=== PATIENT | male | born 1985 | race Caucasian/White ===

== ENCOUNTER 2023-01-04 14:24 | Emergency (ER) | payer MEDICAID ==
[~2023-01-04] VITALS: Ht 167.6 cm; Wt 52.2 kg
[2023-01-04 14:52] VITALS: BP 126/89; PULSE 106; RESP 22; TEMP 98; O2SAT 99
--- NOTE | 2023-01-04 15:10 | NUR ---
PT AMBULATED TO BED 8
--- NOTE | 2023-01-04 15:18 | NUR ---
MD CUMMINGS AT BEDSIDE FOR EVALUATION
[2023-01-04 15:25] VITALS: O2SAT 99
[2023-01-04] MEDS ORDERED: LACTATED RINGERS 1,000 ML IV STA (15:45)
--- NOTE | 2023-01-04 16:11 | NUR ---
C/O DIZZINESS DUE TO ELEVATED BLOOD SUGAR, OFF INSULIN FOR A MONTH NOW.
[2023-01-04 16:17] LABS: BASOPHILS % (AUTO) 0.4 % (0.0-2.0); EOSINOPHILS % (AUTO) 0.6 % (0.0-4.0); HEMATOCRIT 38.6 % (36-52); HEMOGLOBIN 13.5 g/dL (12.0-18.0); LYMPHOCYTES # (AUTO) 1.3 K/uL (2.0-11.5); LYMPHOCYTES % (AUTO) 21.6 % (20.5-51.1); MEAN CORPUSCULAR HEMOGLOBIN 33 pg (27-31); MEAN CORPUSCULAR HGB CONC 35 g/dL (33-37); MEAN CORPUSCULAR VOLUME 94.3 fL (80-94); MONOCYTES # (AUTO) 0.4 K/uL (0.8-1.0); NEUTROPHILS # (AUTO) 4.3 K/uL (1.8-7.7); NEUTROPHILS % (AUTO) 70.4 % (42.2-75.2); PLATELET COUNT (AUTO) 183 K/uL (140-450); RED BLOOD CELL COUNT(AUTO) 4.09 MIL/uL (4.20-6.10); RED CELL DISTRIBUTION WIDTH 13.1 % (11.6-13.7); WHITE BLOOD COUNT (AUTO) 6.1 K/uL (4.8-10.8)
[2023-01-04 16:25] LABS: APPEARANCE,URINE CLEAR (CLEAR); BILIRUBIN,URINE NEGATIVE (NEGATIVE); BLOOD, URINE NEGATIVE (NEGATIVE); COLOR,URINE YELLOW (YELLOW); LEUKOCYTE ESTERASE ,URINE NEGATIVE (NEGATIVE); NITRITE, URINE NEGATIVE (NEGATIVE); PH,URINE 5.5 (5.0-9.0); UGLUCOSE 3+ (NEGATIVE)
[2023-01-04 16:27] LABS: ACETONE, SERUM NEGATIVE (NEGATIVE)
[2023-01-04 16:39] LABS: ALBUMIN 3.8 g/dL (3.4-5.0); ANION GAP 16.7 (8-16); ASPARTATE AMINOTRANSFERASE 11 U/L (15-37); CARBON DIOXIDE 21.8 mmol/L (21-32); CHLORIDE 96 mmol/L (98-107); CREATININE 0.5 mg/dL (0.6-1.3); GFR ARICAN-AMERICAN 241 mL/min (>90); LIPASE 148 U/L (73-393); POTASSIUM 3.5 mmol/L (3.5-5.1); SODIUM SERUM 131 mmol/L (136-145); TOTAL BILIRUBIN 0.4 mg/dL (0.0-1.0); UREA NITROGEN, BLOOD 10 mg/dL (7-18)
[2023-01-04 16:50] LABS: GLUCOSE 447 mg/dL (74-106)
[2023-01-04 17:25] VITALS: BP 121/89; PULSE 88; RESP 22; TEMP 98; O2SAT 99
--- NOTE | 2023-01-04 17:33 | NUR ---
IV removed, catheter intact and site benign. Applied folded 4x4 gauze and tape to stop bleeding.
--- NOTE | 2023-01-04 17:35 | NUR ---
Patient discharged with v/s stable. Written and verbal after care instructions FOR HYPERGLYCEMIA AND DEHYDRATION given and explained. Patient verbalized understanding. Ambulatory with steady gait. All questions addressed prior to discharge. Advised to follow up with PMD.
== END 2023-01-04 17:35 | disposition home or self-care (01) ==
LOC: MED 14:24
DX: E11.65 Type 2 diabetes mellitus with hyperglycemia (principal); R53.1 Weakness; R42 Dizziness and giddiness; Z91.148 Patient's other noncompliance with medication regimen for other reason; Z79.899 Other long term (current) drug therapy
CPT/HCPCS: 36415; 71045; 80053; 81003; 82009; 82948; 83690; 84484; 85025; 93005; 96360; 99285; J7120